=== PATIENT | female | born 2000 | race Hispanic/Latino ===

== ENCOUNTER 2021-10-21 23:34 | Emergency (ER) | payer MEDICAID ==
[~2021-10-21] VITALS: Ht 157.5 cm; Wt 94.3 kg
[2021-10-22 00:09] LABS: APPEARANCE,URINE CLEAR (CLEAR); BILIRUBIN,URINE NEGATIVE (NEGATIVE); COLOR,URINE YELLOW (YELLOW); GLUCOSE, URINE (UA) 500 mg/dL (NEGATIVE); KETONES,URINE NEGATIVE (NEGATIVE); LEUKOCYTE ESTERASE ,URINE NEGATIVE (NEGATIVE); NITRATE,URINE NEGATIVE (NEGATIVE); OCCULT BLOOD,URINE NEGATIVE (NEGATIVE); PROTEIN,URINE NEGATIVE (NEGATIVE); UROBILINOGEN,URINE 0.2 mg/dL (0.2-1.0)
[2021-10-22 00:11] LABS: HCG,QUALITATIVE URINE NEGATIVE (NEGATIVE)
[2021-10-22 00:19] LABS: BACTERIA,URINE None Seen /HPF (None Seen); MUCUS,URINE Few LPF (None Seen); RBC,URINE None Seen /HPF (0-1); SQUAMOUS EPITHELIAL CELL,UR Few /HPF (0-2); WBC,URINE None Seen /HPF (0-1)
[2021-10-22] MEDS ORDERED: IBUP-2070 PO (00:39)
[2021-10-22] MEDS ORDERED: KETOROLAC 60 MG VIAL (30MG/ML) IM ONE ×2 (00:43→01:00)
[2021-10-22 01:26] VITALS: BP 100/56
== END 2021-10-22 01:31 | disposition home or self-care (01) ==
LOC: EDH 23:34
DX: R07.89 Other chest pain (principal); E11.9 Type 2 diabetes mellitus without complications; F41.9 Anxiety disorder, unspecified; F32.A Depression, unspecified
CPT/HCPCS: 99284; 81001; 81025; 93005; 96372; J1885

== ENCOUNTER 2023-06-20 05:48 | Emergency (ER) | payer MEDICAID, OTHER ==
[~2023-06-20] VITALS: Ht 157.5 cm; Wt 90.7 kg
[~2023-06-20 05:48] MED LIST: IBUP-2070 PO
[2023-06-20 06:29] LABS: BASOPHILS # (AUTO) 0.04 K/uL (0.00-0.20); BASOPHILS % (AUTO) 0.2 % (0.0-5.0); EOSINOPHILS # (AUTO) 0.13 K/uL (0.00-0.70); EOSINOPHILS % (AUTO) 0.8 % (0.0-8.0); HEMATOCRIT 43.9 % (36-48); IMMATURE GRANULOCYTE ABSOLUTE 0.06 K/uL (0-1); LYMPHOCYTES # (AUTO) 2.5 K/uL (1.0-4.8); LYMPHOCYTES % (AUTO) 15.5 % (21.0-51.0); MEAN CORPUSCULAR HEMOGLOBIN 27.4 pg (27.0-33.0); MEAN CORPUSCULAR HGB CONC 33.5 g/dL (32.0-36.0); MEAN CORPUSCULAR VOLUME 81.9 fL (79-99); MONOCYTES # (AUTO) 0.6 K/uL (0.1-1.0); MONOCYTES % (AUTO) 3.8 % (3.0-13.0); NEUTROPHILS % (AUTO) 79.3 % (40.0-77.0); PLATELET COUNT (AUTO) 384 K/uL (130-400); RED BLOOD CELL COUNT(AUTO) 5.36 MIL/uL (4.00-5.50); RED CELL DISTRIBUTION WIDTH 12.6 % (11.0-15.5); WHITE BLOOD COUNT (AUTO) 16.4 K/uL (4.8-10.8)
[2023-06-20 06:39] LABS: CREATININE 0.7 mg/dL (0.5-1.0); POTASSIUM 3.9 mmol/L (3.5-5.1)
[2023-06-20] MEDS: FAMOTIDINE 20MG VIAL IV ONE (06:40)
[2023-06-20] MEDS: ONDANSETRON 4MG INJ IVP ONE (06:40)
[2023-06-20] MEDS: 0.9%NACL 1000ML 1,503 ML IV ONE (06:40)
[2023-06-20] MEDS: MORPHINE 4 MG SYG IVP ONE (06:41)
[2023-06-20 06:45] LABS: ALBUMIN 3.7 g/dL (3.5-5.0); BILIRUBIN,TOTAL 0.3 mg/dL (0.2-1.0); TOTAL PROTEIN, SERUM 8.7 g/dL (6.0-8.3)
[2023-06-20 07:37] LABS: COVID19 (SARS ANTIGEN RAPID) PRESUMPTIVE NEGATIVE (NEGATIVE); INFLUENZA TYPE A Negative For Type A (NEGATIVE); INFLUENZA TYPE B Negative For Type B (NEGATIVE)
[2023-06-20 08:58] LABS: APPEARANCE,URINE CLEAR (CLEAR); BILIRUBIN,URINE NEGATIVE (NEGATIVE); COLOR,URINE YELLOW (YELLOW); GLUCOSE, URINE (UA) >=1000 mg/dL (NEGATIVE); KETONES,URINE NEGATIVE (NEGATIVE); LEUKOCYTE ESTERASE ,URINE 75 Leu/uL (NEGATIVE); NITRATE,URINE NEGATIVE (NEGATIVE); OCCULT BLOOD,URINE NEGATIVE (NEGATIVE); PH,URINE 5.5 (5.0-8.0); PROTEIN,URINE 30 mg/dL (NEGATIVE); UROBILINOGEN,URINE 0.2 mg/dL (0.2-1.0)
[2023-06-20 09:00] LABS: ADD UA MICROSCOPIC YES
[2023-06-20 09:02] LABS: BACTERIA,URINE RARE /HPF (None Seen); MUCUS,URINE FEW LPF (None Seen); SQUAMOUS EPITHELIAL CELL,UR MOD /HPF (0-2)
[2023-06-20] MEDS ORDERED: ESOM40CA PO (09:07)
[2023-06-20] MEDS ORDERED: ONDA4TAB10 PO (09:07)
[2023-06-20] MEDS: PANTOPRAZOLE 40 MG/VIAL IV ONE (09:16)
[2023-06-20] MEDS: MAG/ALUM/SIMETH 30 ML UDCUP PO ONE (09:16)
[2023-06-20] MEDS: DICYCLOMINE HCL 10 MG/5 ML ML PO ONE (09:16)
[2023-06-20] MEDS: LIDOCAINE HCL 2% VISCOUS 15 ML UDCUP PO ONE (09:16)
[2023-06-20 09:28] VITALS: BP 104/65; PULSE 80; RESP 17; O2SAT 97
== END 2023-06-20 09:28 | disposition home or self-care (01) ==
LOC: EDH 05:48
DX: K29.00 Acute gastritis without bleeding (principal); E11.9 Type 2 diabetes mellitus without complications; F41.9 Anxiety disorder, unspecified; F32.A Depression, unspecified; Z20.822 Contact with and (suspected) exposure to COVID-19; Z79.899 Other long term (current) drug therapy
CPT/HCPCS: 99284; 96374; 96375; 87426; 82550; 80053; 84703; 83690; 85025; 87088; 87880; 87804 ×2; 83605; 81001; 36415; J3490; J7030; J2405; J2270; C9113